=== PATIENT | male | born 1965 | race Caucasian/White ===

== ENCOUNTER 2024-09-20 10:58 | Emergency (ER) | payer OTHER, SELFPAY ==
--- NOTE | ~2024-09-20 | XR_ITS ---
Left Knee Technique: AP, lateral, and sunrise views were obtained. Clinical History: Pain Findings: No fracture or dislocation is seen. Suspected focal bony fracture the distal femur and prox imal tibia. Osseous alignment is anatomic. Joint spaces are preserved without degenerative or erosive change. Prepatellar soft tissue edema present. No joint effusion is seen. Impression: Probable focal bone infarcts at the distal femur and proximal tibia. Prepatellar bursitis versus other prepatellar soft tissue swelling. Reviewed, dictated and finalized at location . Impression: Probable focal bone infarcts at the distal femur and proximal tibia. Prepatellar bursitis versus other prepatellar soft tissue swelling.
--- NOTE | 2024-09-20 11:01 | ED_ITS ---
HPI - Extremity Injury (Lower) General Chief Complaint: Extremity Injury, Lower Stated Complaint: Left Knee Pain Time Seen by Provider: 09/20/24 11:00 Source: patient Mode of arrival: ambulatory Limitations: no limitations History of Present Illness HPI Narrative: Patient is a 59-year-old male who presents with swollen left knee. Patient states he was taking out a plastic garbage can and noticed a significant swelling. Denies any trauma to knee. States he feels pressure in the knee but denies any pain. Denies any redness, warmth to area, numbness, tingling or weakness to distal portion of the leg. Related Data Allergies Allergy/AdvReac Type Severity Reaction Status Date / Time No Known Allergies Allergy Verified 09/20/24 11:28 Review of Systems Review of Systems: All systems reviewed & are unremarkable except as noted in HPI and below Constitutional: Constitutional: Denies body ache(s), Denies chills, Denies fatigue, Denies fever(s), Denies headache(s), Denies malaise and Denies weakness Eyes: Eyes: Denies blurry vision, Denies irritation and Denies loss of vision ENT: Denies otalgia, Denies headache(s), Denies nasal discharge, Denies sinus pain and Denies sore throat Cardiovascular: Cardiovascular: Denies chest pain, Denies irregular heart rhythm and Denies dyspnea Respiratory: Respiratory: Denies dyspnea Gastrointestinal: Gastrointestinal: Denies abdominal pain, Denies melena, Denies hematochezia, Denies diarrhea, Denies nausea and Denies vomiting Musculoskeletal: Musculoskeletal: Denies back pain, Denies myalgias, Denies arthralgias and Reports joint swelling Integumentary/Breasts: Skin/Breast: Denies pruritus and Denies rash Neurologic: Denies headache(s), Denies loss of vision and Denies weakness Psychiatric: Psychiatric: Reports no additional psychiatric complaints Endocrine: Endocrine: Denies fatigue PMFSH Past Medical History Medical History Body mass index [BMI] 30.0-30.9, adult (06/27/17) Body mass index [BMI] 31.0-31.9, adult (08/11/15) Chest pain Epistaxis Left foot pain Obesity, unspecified (05/12/15) Perioral dermatitis Rosacea Strain of left rotator cuff capsule Family History Family History Father Family history of congestive heart failure, Onset Age: 69 Social History Social History Smoking status: Never smoker Alcohol intake: current Current Housing: Decline to Answer Concerned About Future Housing: Decline to Answer Difficulty Paying Gas/Electric Bills: Decline to Answer Difficulty Paying for Meds: Decline to Answer Currently Unemployed: Decline to Answer Education: Decline to Answer Difficulty w/ Childcare or Family Care: Decline to Answer Comments At time of signature, agree with nursing past medical, surgical, social and family history. There is no relevant family history pertinent to the presenting complaint. Exam Const: General: cooperative, healthy appearing, comfortable, no acute distress and well nourished Nutritional Appearance: well nourished Orientation/consciousness: patient oriented x3 Limitations: no limitations HENMT: Head: normal to inspection, normocephalic and atraumatic Ears: hearing grossly normal bilaterally and external ears normal Face/Nose/Sinus: Normal external nose present, normal facial exam and face symmetric Face and sinus: normal facial exam and face symmetric Mouth: Yes lip normal Eyes: General: appearance normal, both eyes and all related structures Alignment and Position: alignment normal and position normal Periorbital: periorbital findings normal Eyelids: eyelids normal Pupils: Equal, round and reactive pupils present EOM: EOMs intact bilaterally Neck: Neck: normal visual inspection, full ROM and supple Chest: Chest palpation & inspection: normal inspection of the chest Resp: Effort & Inspection: normal respiratory effort and able to speak in complete sentences Auscultation: clear to auscultation bilaterally Cardio: Rate: regular rate Rhythm: regular rhythm Heart sounds: S1 normal heart sound present and S2 normal heart sound present GI: Inspection: normal to inspection Skin: General skin exam: normal color and no rashes or lesions noted Neuro: General: patient oriented x3 and moves all extremities Cranial nerves: Yes Equal, round and reactive pupils present Speech: normal speech Gait exam (Neuro): Normal gait present Extrem: General: normal to inspection, full ROM and no edema Left lower extremity: full ROM, normal capillary refill, hip/thigh Details: normal to inspection and normal ROM; no tenderness and no swelling, knee Details: normal to inspection, swelling Location: of the pre-patellar area, normal ROM and knee ligament exam normal Details: anterior drawer test normal, posterior drawer test normal, valgus stress test normal and varus stress test normal; no tenderness, no ecchymosis, no deformity and no unusual warmth, lower leg Details: normal to inspection and no edema; no tenderness, no localized swelling and no deformity and foot Psych: Appearance: grossly normal and well kempt Mental Status: mental status grossly normal Speech and movement: Normal speech and movement present Affect: normal affect Attitude: cooperative Thought process: Normal thought process present Course Course Emergency Course: Patient is aware of diagnosis, understands and agrees to treatment plan. Anticipatory guidance given. Patient agrees to follow-up as directed and is aw are of reasons to seek care at the emergency department. Portions of this record may have been created with voice recognition software Level of Care: Express Care Visit Vital Signs Vital signs: Reviewed MDM - Extremity Injury (Lower) MDM Narrative Medical decision making narrative: discussed x-ray results and the need to follow-up with ortho. Given referral to call tomorrow. an Alan wrap applied to knee. Treating with steroid Pt well hydrated appearing, in no respiratory distress, hemodynamically stable. Recommend supportive care. The patient is stable at time of discharge the clinical impression was discussed and the patient was given the opportunity to ask questions, which were addressed as completely as possible given the information available at present. Anticipatory guidance and return to care precautions were discussed and the importance of primary care follow-up was stressed and encouraged. The patient voiced understanding of the plan, indications to return, and the need for follow-up. Exam findings show no acute concerns or changes Patient is appropriate for outpatient treatment and follow-up. Differential Diagnosis Differential diagnosis: Likely acute internal derangement of knee and other ( pre patella bursitis, femur infarct, osteonecrosis) Medical Records Attestation: I reviewed the patient's medical records. Imaging Data Radiologist's impression: Left Knee Technique: AP, lateral, and sunrise views were obtained. Clinical History: Pain Findings: No fracture or dislocation is seen. Suspected focal bony fracture the distal femur and proximal tibia. Osseous alignment is anatomic. Joint spaces are preserved without degenerative or erosive change. Prepatellar soft tissue edema present. No joint effusion is seen. Impression: Probable focal bone infarcts at the distal femur and proximal tibia. Prepatellar bursitis versus other prepatellar soft tissue swelling. Discharge Plan Discharge Clinical Impression: Bursitis, prepatellar, left, Bone infarct of distal femur Patient Disposition: Home Condition: Stable Instructions: Knee Bursitis (ED) Additional Instructions: Xray showed Probable focal bone infarcts at the distal femur and proximal tibia. Prepatellar bursitis versus other prepatellar soft tissue swelling. Take steroids in the morning with food Minimize activities that aggravate the condition The RICE protocol. Follow the RICE protocol as soon as possible after your injury: Rest your knee by not walking on it. Ice should be immediately applied to keep the swelling down. It can be used for 20 to 30 minutes, three or four times daily. Do not apply ice directly to your skin. Compression dressings, bandages or alan-wraps will immobilize and support your injured knee. Elevate your knee above the level of your heart as often as possible during the first 48 hours. For pain, you may take: Tylenol 650-1000mg by mouth every 4-6 hours. Do not exceed 4000mg in 24 hours. Please schedule a follow-up visit with your personal physician for further evaluation and treatment within 1week OR If your symptoms persist, change or worsen significantly before you can contact your personal physician then please, without delay, go to the emergency department for further evaluation. Your blood pressure was elevated above 120/80 today at Urgent Care. This puts you above the threshold for follow up visit with a primary care provider. High blood pressure does not usually cause any symptoms, however it may lead to kidney failure, stroke, heart disease just to name a few if untreated . Many people are anxious when seeing a provider or nurse. As a result, you are not diagnosed with hypertension at this time unless your blood pressure is persi stently high at two office visits at least one week apart. Some things that can help lower blood pressure are lifestyle modifications, such as light exercise, decreased salt in diet, and weight loss. It is important to follow up with a PCP about this within 1 week. Patient Language: [place] Prescriptions: New prednisone 20 mg tablet See Rx Instructions .ROUTE .COMPLEX Qty: 9 0RF Rx Instructions: 40 mg daily x3 days, 20 mg daily x3 days No Action hydrochlorothiazide 12.5 mg capsule See Rx Instructions .ROUTE .COMPLEX Qty: 90 2RF Dose Instruction: TAKE 1 CAPSULE BY MOUTH EVERY DAY IN THE MORNING Rx Instructions: TAKE 1 CAPSULE BY MOUTH EVERY DAY IN THE MORNING lisinopril 40 mg tablet See Rx Instructions .ROUTE .COMPLEX Qty: 90 2RF Dose Instruction: TAKE 1 TABLET BY MOUTH EVERY DAY Rx Instructions: TAKE 1 TABLET BY MOUTH EVERY DAY metformin 1,000 mg tablet See Rx Instructions .ROUTE .COMPLEX Qty: 180 3RF Dose Instruction: TAKE 1 TABLET BY MOUTH TWICE A DAY WITH BREAKFAST AND DINNER Rx Instructions: TAKE 1 TABLET BY MOUTH TWICE A DAY WITH BREAKFAST AND DINNER metoprolol succinate 25 mg tablet extended release 24 hr See Rx Instructions .ROUTE .COMPLEX Qty: 90 2RF Dose Instruction: TAKE 1 TABLET BY MOUTH EVERY DAY Rx Instructions: TAKE 1 TABLET BY MOUTH EVERY DAY metoprolol succinate 50 mg tablet extended release 24 hr See Rx Instructions .ROUTE .COMPLEX Qty: 90 2RF Dose Instruction: TAKE 1 TABLET BY MOUTH EVERY DAY WITH THE 25MG FOR TOTAL DOSE OF 75MG Rx Instructions: TAKE 1 TABLET BY MOUTH EVERY DAY WITH THE 25MG FOR TOTAL DOSE OF 75MG amlodipine 10 mg tablet See Rx Instructions .ROUTE .COMPLEX Qty: 90 2RF Dose Instruction: TAKE 1 TABLET BY MOUTH EVERY DAY Rx Instructions: TAKE 1 TABLET BY MOUTH EVERY DAY atorvastatin 10 mg tablet See Rx Instructions .ROUTE .COMPLEX Qty: 90 2RF Dose Instruction: TAKE 1 TABLET BY MOUTH EVERY DAY Rx Instructions: TAKE 1 TABLET BY MOUTH EVERY DAY Follow-up/Referrals: Tramaine Phelps MD [Primary Care Provider] - 1 Day Luis Fernando Lynch MD [Physician] - 1 Day (Left Knee Technique: AP, lateral, and sunrise views were obtained. Clinical History: Pain Findings: No fracture or dislocation is seen. Suspected focal bony fracture the distal femur and proximal tibia. Osseous alignment is anatomic. Joint spaces are preserved without degenerative or erosive change. Prepatellar soft tissue edema present. No joint effusion is seen. Impression: Probable focal bone infarcts at the distal femur and proximal tibia. Prepatellar bursitis versus other prepatellar soft tissue swelling.) Time of Disposition: 12:04
[2024-09-20 11:06] VITALS: BP 151/89; PULSE 67; RESP 16; TEMP 36.7; O2SAT 100
== END 2024-09-20 12:05 | disposition home or self-care (01) ==
PROVIDERS: Emergency Provider Nurse Practitioner Family; PCP Emergency Medicine
DX: M70.42 Prepatellar bursitis, left knee (principal); M87.852 Other osteonecrosis, left femur; E66.9 Obesity, unspecified; Z68.27 Body mass index [BMI] 27.0-27.9, adult; L71.9 Rosacea, unspecified
CPT/HCPCS: 73564; 99213; G0463